=== PATIENT | female | born 1970 | race Caucasian/White ===

== ENCOUNTER 2023-03-16 03:33 | Emergency (ER) | payer BC ==
[~2023-03-16] VITALS: Ht 157.5 cm; Wt 113.4 kg
[2023-03-16] MEDS ORDERED: PROG100 PO (04:17)
[2023-03-16] MEDS ORDERED: LISI5 PO (04:18)
[2023-03-16] MEDS ORDERED: CYCL10 PO (05:11)
[2023-03-16] MEDS ORDERED: LIDO700A20 TOP (05:11)
[2023-03-16] MEDS ORDERED: PRED20 PO (05:11)
[2023-03-16 05:13] VITALS: BP 118/63
== END 2023-03-16 05:59 | disposition home or self-care (01) ==
LOC: ER 03:33
DX: M62.830 Muscle spasm of back (principal); I10 Essential (primary) hypertension; Z88.2 Allergy status to sulfonamides; Z91.09 Other allergy status, other than to drugs and biological substances; Z79.899 Other long term (current) drug therapy
CPT/HCPCS: A9270; J1100; J1885